=== PATIENT | female | born 1975 | race Caucasian/White ===

== ENCOUNTER 2023-09-25 15:38 | Emergency (ER) | payer BC, SELFPAY ==
[2023-09-25 15:42] VITALS: BP 136/70; PULSE 62; RESP 20; TEMP 36.8; O2SAT 99
--- NOTE | 2023-09-25 16:24 | ED.GENADUL_ITS ---
Discharge Plan Disposition Patient Disposition: Home Discharge Details Clinical Impression: Sublingual gland swelling Primary Care Provider: Unknown,Unknown ED Provider: Logan Aguiar Home Meds and New Rx's Prescriptions: No Action No Known Home Meds Discharge Instructions Instructions: Hematoma (ED) Additional Instructions: Please continue to monitor symptoms and if you have any new or significant worsening of symptoms return immediately to the emergency department for reassessment. At this time there is no signs of infection or clotting abnormalities. You also have no signs of emergent airway disorder. We have placed a referral to have you follow-up with your primary care provider but if they are unable to see you in the next 1 to 2 weeks you may also follow- up with local urgent care. Referrals: [facility] [Provider Group] - 1 week Discharge Data Discharge Date/Time-TO BE ENTERED AT DEPARTURE: 09/25/23 17:20 Medical Decision Making Patient presenting to the emergency department for chief complaint of tongue swelling. Patient reports 4 days ago that she noticed that she had some abnormal discoloration under the right side of her tongue and some slight sensation of swelling. Patient denies any difficulty breathing or swallowing, fever chills, dental pain, nasal congestion or other complaints. Patient is not on any medications and denies any significant past medical history. Physical exam shows a sub lingual hematoma chest on the right side and some slight increased in glandular size but otherwise no other findings noted and exam is otherwise noncontributory. Patient did state just prior to getting that she did get a new toothbrush but denies any known trauma. When questioning more she does state that she has been having heavy menstrual periods and bruising that has taken longer to clear after injury. While suspect occult injury possible from new toothbrush given other bleeding abnormalities we will check labs for any coagulopathies or abnormalities of concern. no signs of deep neck space infection ( Retropharyngeal abscess, Neil's angina, Parapharyngeal space infection, Peritonsillar Abscess (CONSTRUCTION PLUMBER)) or Epiglottitis. Pt non toxic and stable. I do not feel that any advanced imaging is needed at this time. Patient denies any pain or discomfort at this time. Reviewed patient's labs and CBC is completely within normal limits with no signs of anemia, normal platelet count normal PT PTT and only abnormality is slightly low AST on CMP otherwise within normal range labs. Given no emergent airway or life-threatening findings I do feel the patient can be safely discharged to follow-up with primary care provider for recheck of symptoms. She does state that she is on a waiting list at [facility] so we will send referral to jet inspector for recheck of symptoms otherwise I feel that patient can monitor symptoms at home. After discussion of diagnosis and plan of care patient has no further needs, questions, or concerns and states clear understanding to return to the emergency department for any worsening symptoms. This documentation was generated using dscoveredation system, please disregard any oddities of phrase or misspellings. HPI General Mode of arrival: ambulatory . Date/Time Provider Initiated Documentation: 09/25/23 15:44 . Limitations to Documentation: no limitations . Information obtained by: patient and RN notes reviewed . History of Present Illness 48 year old F presents to the emergency department with the chief complaint of Tongue swelling, described as mild and moderate, Patient reports no radiation. Patient started experiencing this day(s) (4) and it has been constant. No relieving factors improve symptom(s), No exacerbating factors reported . Patient notes no other symptoms.. Patient did receive the following treatments prior to arrival, none Related Data Home Medications Medication Instructions Recorded Confirmed Unknown [No Known Home Meds] 09/25/23 09/25/23 Allergies Allergy/AdvReac Type Severity Reaction Status Date / Time codeine Allergy Intermediate Skin Rash Unverified 09/25/23 15:46 General Stated Complaint: FacialProb LARRY: 3 Review of Systems Constitutional Constitutional: Denies chills, Denies fever(s), Denies headache(s) and Denies malaise ENT Ears, Nose, Mouth, and Throat: Reports as per HPI, Denies change in voice, Denies dental pain, Denies dry mouth, Denies headache(s), Denies hoarseness, Denies lip swelling, Denies mouth lesions, Denies mouth pain, Denies neck mass, Denies odynophagia, Denies sinus pain, Denies sore throat and Reports tongue swelling Cardiovascular Cardiovascular: Denies dyspnea Respiratory Respiratory: Denies dyspnea and Denies stridor Gastrointestinal Gastrointestinal: Denies odynophagia Integumentary/Breasts Skin/Breast: Denies rash Neurologic Neurologic: Denies headache(s) Hematologic/Lymphatic Hematologic/Lymphatic: Reports easy bruising and Denies lymphadenopathy Allergic/Immunologic Allergic/Immunologic: Denies lip swelling and Reports tongue swelling PFSH All Active Problems (Updated 09/25/23 @ 17:04 by Logan Aguiar NP) Sublingual gland swelling (Acute) Social History Smoking risk assessment performed?: No Alcohol Intake: current Alcohol Intake frequency: a few times a week Substance use type: marijuana Housing: house Do you feel safe at home: Yes Do you feel safe in your relationship?: Yes Exam Const General: cooperative, healthy appearing, comfortable, no acute distress and not ill appearing Orientation: alert, awake and oriented x3 HENMT Head: normal to inspection and normocephalic Ears: hearing grossly normal bilaterally, external ears normal, TM's normal bilaterally and mastoids normal General nose exam: external nose normal and nares normal Face and sinus: normal facial exam Mouth: oral mucosae normal, lip normal, no audible dysphonia, no drooling, tongue abnormal other (Sublingual hematoma), no trismus, No restricted motion and No thickened frenulum Throat: posterior oropharynx normal, uvula midline and no peritonsillar masses Neck Neck: normal visual inspection, full ROM, no lymphadenopathy and no meningeal signs Resp Effort & Inspection: normal respiratory effort, able to speak in complete sentences and no stridor Auscultation: clear to auscultation bilaterally Cardio Rate: regular rate Rhythm: regular rhythm Heart Sounds: S1 normal and S2 normal Skin General skin exam: no rashes or lesions noted Course Vital Signs Vital signs: Vital Signs Temperature 36.8 C 09/25/23 15:42 Pulse 62 09/25/23 15:42 Respiratory Rate 20 09/25/23 15:42 Blood Pressure 136/70 09/25/23 15:42 Pulse Oximetry 99 09/25/23 15:42 Temperature 36.8 C 09/25/23 15:42 Temperature Source Oral 09/25/23 15:42 Pulse 62 09/25/23 15:42 Respiratory Rate 20 09/25/23 15:42 Respiratory Effort Normal 09/25/23 15:48 Blood Pressure 136/70 09/25/23 15:42 Blood Pressure Position Sitting 09/25/23 15:42 Pulse Oximetry 99 09/25/23 15:42 Oxygen Delivery Method Room Air 09/25/23 15:42 Oxygen Flow Rate 0 09/25/23 15:42 Pain Level 0 09/25/23 15:42 PAWSS Have you Been Recently Intoxicated or Drunk Within the Last 30 days?: No Have you Ever Experienced Previous Episodes of Alcohol Withdrawal?: No Have you ever Experienced Withdrawal Seizures?: No Have you ever Experienced Delirium Tremens(DT)s?: No Have you ever undergone Alcohol Rehabilitation Treatment (i.e, inpt ot outpatient treatment programs)?: No Have you ever Experienced Blackouts?: No Have you ever Combined Alcohol with other Downers within the last 90 days?: No Have you ever Combined Alcohol with any other Substance of Abuse during the last 90 days?: No Positive Blood Alcohol level on Presentation? [PCS.BAL]: No Evidence of Increased Autonomic Activity (i.e. HR>120, tremor, sweating, agitation, nausea)?: No Result: 0
[2023-09-25 16:39] LABS: ALT 20 U/L (14-59); AST 12 U/L (15-37); Alkaline Phosphatase 64 U/L (46-116); Anion Gap 7.8 mmol/L (3-11); BUN 10 mg/dL (7-18); Bilirubin, Total 0.5 mg/dL (0.2-1.0); CO2 29.2 mmol/L (21.0-32.0); CREATININE 0.8 mg/dL (0.55-1.02); Calcium 9.5 mg/dL (8.5-10.1); Chloride 104 mmol/L (98-107); Estimated GFR 90.83 (mL/min/1.73m2); Glucose 97 mg/dL (74-106); INR 1.1 (0.9-1.1); PTT Activated 27.4 sec (23.6-32.8); Potassium 4.3 mmol/L (3.5-5.1); Prothrombin Time 10.9 sec (9.1-11.1); Sodium 141 mmol/L (136-145); Total Protein 7.9 g/dL (6.4-8.2)
[2023-09-25 16:42] LABS: Abs Immature Grans 0.01 10^3/uL (0.0-0.06); Absolute Basophil Count 0.05 10^3/uL (0.0-0.2); Absolute Eosinophil Count 0.14 10^3/uL (0.0-0.7); Absolute Lymphocyte Count 3.03 10^3/uL (1.2-3.4); Absolute Monocyte Count 0.45 10^3/uL (0.1-0.8); Absolute Neutrophil Count 3.64 10^3/uL (1.2-6.7); Basophils % 0.7; Eosinophils % 1.9; HCT 40.1 % (36.0-46.0); HGB 13.3 g/dL (11.2-15.7); Immature Grans % 0.1; Lymphocytes % 41.4; MCH 31.5 pg (27.0-33.0); MCHC 33.2 % (32.0-36.0); MCV 95 fL (80-95); Monocytes % 6.1; Neutrophils % 49.8; Platelet Count 285 10^3/uL (130-400); RBC 4.22 10^6/uL (3.93-5.22); RDW 13.4 % (11.7-14.6); RDW-SD 47.3 fL; WBC 7.32 10^3/uL (4.4-10.8)
--- NOTE | 2023-09-25 17:11 | NUR.NOTE ---
Referral given to Care Management to [facility], on waiting list for this office; needs PCP; sublingual hematoma, in 1 to 2 weeks..Nursing Note:
== END 2023-09-25 17:20 | disposition home or self-care (01) ==
PROVIDERS: Emergency Provider Nurse Practitioner Family
DX: R60.0 Localized edema (principal)
CPT/HCPCS: 80053; 99283; 85025; 85610; 85730

== ENCOUNTER 2025-09-22 15:21 | Outpatient (REF) | payer BC, SELFPAY ==
--- NOTE | 2025-09-22 15:00 | PAPFT_PTH ---
PATIENT: Monique Ortega LOC: [facility] U#:[id number] AGE/SX: 50/F ROOM: RE09/22/[address]: Megan Cabrera NP : 1975 BED: DIS: 09/22/2025 SPEC #: [id number] RECD: 09/22/25 18:29 STATUS: ARAMIS REBonita #: [id number] JUDY: 09/22/25 15:[address]: Deborah THOMPSON,Megan DEPT: [facility] Cytology RECD BY: Karen Mendez ENTERED: 09/22/25 18:29 SP TYPE: PAPFT OT DR: Unknown,Unknown Tissues: 1 - CX/ENDOCX FOR PAP SMEARS Procedures: PAP THIN PREP/[facility] Screening HPV DNA PROBE Comments: [id number] (HPV 16 * 18/45)
== END 2025-09-22 15:22 | disposition home or self-care (01) ==
LOC: LBN 15:21
PROVIDERS: Visit Provider Nurse Practitioner Women's Health
DX: Z11.51 Encounter for screening for human papillomavirus (HPV) (principal); Z01.419 Encounter for gynecological examination (general) (routine) without abnormal findings
CPT/HCPCS: 88142; 87624

== ENCOUNTER → 2025-10-20 00:39 | Outpatient (CLI) | payer BC, SELFPAY ==
--- NOTE | 2025-10-20 07:15 | DI.MAMMO_ITS ---
Exam(s) MAMMO SCREENING EXAM: MAMMO SCREENING CLINICAL HISTORY: screening,Z12.39 TECHNIQUE: Bilateral full field digital CC and MLO mammographic images were obtained with 3D tomosynthesis and utilizing computer aided detection (CAD). COMPARISON: There are no priors for comparison at this time. FINDINGS: Masses/Architectural Distortion: There is an asymmetric density in the inferior right breast on the MLO view 5 cm from the nipple. There are no areas of architectural distortion or suspicious masses in the left breast. Microcalcifications: No suspicious pleomorphic-type are seen. Skin Thickening/Nipple Retraction: None. IMPRESSION: 1. Asymmetric density in the inferior right breast on the MLO view. 2. This area should be further evaluated with a spot compression view. Ultrasound may be indicated at that time. BI-RADS Category 0 - Incomplete: Need additional imaging evaluation Breast Density - Category C - The breast are heterogeneously dense, which may obscure small masses. Breast density Category C or D implies that the patient has dense breast tissue. Dense breast tissue can make it harder to find cancer on a mammogram. Dense breast tissue is also associated with an increased risk of breast cancer. This information about the result of the mammogram report was provided to the patient to raise their awareness. Use this report when you speak with the patient about their risks for breast cancer, which includes their family history. At that time, you may recommend additional screening tests (Ultrasound or MRI) as these tests may add significant information. A negative radiographic report should not delay biopsy if a dominant or clinically suspicious mass is present. Up to ten percent of cancers are not identified on mammography. A negative report may reinforce clinical impression. Adenosis and dense breasts may obscure an underlying neoplasm. False positive reports average 6 to 10%. Patient will receive a letter notifying them of these results.
== END ==
PROVIDERS: Visit Provider Nurse Practitioner Women's Health
DX: Z12.31 Encounter for screening mammogram for malignant neoplasm of breast (principal)
CPT/HCPCS: 77063; 77067